=== PATIENT | female | born 1985 | race African-American/Black ===

== ENCOUNTER 2020-02-26 17:51 | Emergency (ER) | payer BC, MEDICAID ==
[~2020-02-26] VITALS: Ht 182.9 cm; Wt 120.0 kg
--- NOTE | 2020-02-26 19:15 | NUR ---
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
[2020-02-26] MEDS ORDERED: MELO7.5T31 PO (19:18)
--- NOTE | 2020-02-26 19:22 | NUR ---
PT REPORTS COMING IN TODAY DUE TO PAIN DOWN LEFT SIDE OF BODY STARTING WITH SHOULDER BLADE AND DOWN TO FEET. NO WEAKNESS NOTED OR DEFICITS ON THAT SIDE. PT STATES THIS HAS BEEN ONGOING FOR THREE DAYS AND THAT HER PRIMARY STATES SHE HAS "ARTERIES THAT ARENT WORKING IN MY LOWER LEGS AND I MAY HAVE A DVT OR JUST VALVE THINGS STAYING OPEN, FEELS LIKE ITS KNOTTED UP." PT GROSS NEURO INTACT. ALSO STATES THAT SHE LOST CONCIOUSNESS X3 TIMES TODAY AND FELL WITH EACH, UNKNOWN IF ANY HEAD TRAUMA, NO DEFORMITIES NOTED. PT CHANGED INTO GOWN AND RESTING ON GURNEY, NAD, VSS, SKIN COLOR WNL WARM AND DRY. PT PLACED ON SPO2/BP/ECG MONITORING. WCTM.
--- NOTE | 2020-02-26 20:01 | NUR ---
PT RESTING IN [facility] AT BS, NO CHANGES IN CONDITION, WCTM. WAITING FOR US RESULTS.
--- NOTE | 2020-02-26 20:42 | NUR ---
PT RESTING IN GURNEY, NAD, NO CHANGE IN CONDITION, REPORTS PAIN IS UNCOMFORTABLE, WCTM. WAITING FOR US RESULTS.
[2020-02-26 21:06] VITALS: BP 114/63
== END 2020-02-26 21:07 | disposition home or self-care (01) ==
LOC: ED 19:24
DX: I80.02 Phlebitis and thrombophlebitis of superficial vessels of left lower extremity (principal); J45.909 Unspecified asthma, uncomplicated; M79.89 Other specified soft tissue disorders; F17.200 Nicotine dependence, unspecified, uncomplicated
CPT/HCPCS: 99284

== ENCOUNTER 2020-03-12 07:35 | Emergency (ER) | payer MEDICAID ==
[~2020-03-12] VITALS: Ht 182.9 cm; Wt 123.4 kg
[~2020-03-12 07:35] MED LIST: MELO7.5T31 PO
[2020-03-12 07:40] VITALS: BP 148/99
--- NOTE | 2020-03-12 08:11 | NUR ---
MD IS AT THE BEDSIDE FOR ASSESSMENT
[2020-03-12 09:11] LABS: ALANINE AMINOTRANSFERASE 33 U/L (12-78); ALBUMIN 3.1 g/dL (3.4-5.0); ANION GAP 5 mmol/L (5-15); C-REACTIVE PROTEIN, QUANT 0.58 mg/dL (0.02-0.49); CALCIUM 8.4 mg/dL (8.5-10.1); CHLORIDE 111 mmol/L (98-107); CREATININE 0.73 mg/dL (0.55-1.02)
[2020-03-12 09:12] LABS: MEAN CORPUSCULAR HEMOGLOBIN 28.3 pg (27.0-34.8); MEAN CORPUSCULAR HGB CONC 31.8 g/dL (32.4-35.8); MEAN CORPUSCULAR VOLUME 88.9 fL (80-100); MEAN PLATELET VOLUME 8.1 fL (7.4-10.4); PLATELET COUNT 356 x10^3/uL (130-400); RED BLOOD COUNT 4.69 x10^6/uL (3.82-5.3); RED CELL DISTRIBUTION WIDTH 14.9 % (9.6-15.2)
[2020-03-12] MEDS ORDERED: IBUPROFEN 800 MG TABLET ONE (09:15)
[2020-03-12 09:16] LABS: ALKALINE PHOSPHATASE 56 U/L (45-117); BILIRUBIN,TOTAL 0.2 mg/dL (0.2-1.0); TOTAL PROTEIN 6.8 g/dL (6.4-8.2)
--- NOTE | 2020-03-12 09:23 | NUR ---
BREAK RN: PHARM REQUEST FOR ALBUTEROL INHALER
[2020-03-12] MEDS ORDERED: ALBUTEROL HFA 90 MCG/SPRAY INH PRN (09:30)
[2020-03-12] MEDS ORDERED: IBUPROFEN 800 MG TABLET PO ONE (09:30)
--- NOTE | 2020-03-12 09:31 | NUR ---
BREAK RN: MEDICATION ADMINISTERED PER ORDER. GARON. PT RESTING ON GURNEY. PT GIVEN BLANKET. PT VERBALIZED UNDERSTANDING REGARDING WAITING ON A MED TO BE SENT FROM PHARMACY. NO OTHER NEEDS REQUESTED AT THIS TIME.
[2020-03-12 09:35] LABS: MD SCAN
[2020-03-12 09:36] LABS: BASOPHILS # (AUTO) 0.06 x10^3/uL (0-0.1); BASOPHILS % (AUTO) 1 % (0-1); EOSINOPHILS # (AUTO) 0.45 x10^3/uL (0-0.4); EOSINOPHILS % (AUTO) 5 % (1-7); LYMPHOCYTES # (AUTO) 1.95 x10^3/uL (1-3.4); LYMPHOCYTES % (AUTO) 20 % (22-44); MONOCYTES # (AUTO) 0.58 x10^3/uL (0.2-0.8); MONOCYTES % (AUTO) 6 % (2-9); NEUTROPHILS # (AUTO) 6.64 x10^3/uL (1.8-6.8); NEUTROPHILS % (AUTO) 69 % (42-75)
== END 2020-03-12 10:15 | disposition home or self-care (01) ==
LOC: ED 08:21
DX: B34.9 Viral infection, unspecified (principal); Z20.828 Contact with and (suspected) exposure to other viral communicable diseases; R94.31 Abnormal electrocardiogram [ECG] [EKG]; F17.200 Nicotine dependence, unspecified, uncomplicated
CPT/HCPCS: 36415; 71045; 80053; 82728; 83615; 84145; 85025; 86140; 87635; 93005; 99285

== ENCOUNTER 2021-03-03 16:42 | Emergency (ER) | payer MEDICAID ==
[~2021-03-03] VITALS: Ht 182.9 cm; Wt 121.0 kg
[2021-03-03 17:57] LABS: MICROSCOPIC AUTO
[2021-03-03 20:33] LABS: BASOPHILS % (AUTO) 1 % (0-1); EOSINOPHILS % (AUTO) 3 % (1-7); LYMPHOCYTES % (AUTO) 26 % (22-44); MEAN CORPUSCULAR HEMOGLOBIN 29.2 pg (27.0-34.8); MEAN CORPUSCULAR HGB CONC 33.7 g/dL (32.4-35.8); MEAN PLATELET VOLUME 8.9 fL (7.4-10.4); MONOCYTES % (AUTO) 8 % (2-9); NEUTROPHILS % (AUTO) 63 % (42-75); PLATELET COUNT 267 x10^3/uL (130-400); RED BLOOD COUNT 5.76 x10^6/uL (3.82-5.3); RED CELL DISTRIBUTION WIDTH 15.7 % (9.6-15.2)
[2021-03-03 20:34] LABS: ALANINE AMINOTRANSFERASE 37 U/L (12-78); ALBUMIN 3.7 g/dL (3.4-5.0); ANION GAP 8 mmol/L (5-15); CALCIUM 9.7 mg/dL (8.5-10.1); CHLORIDE 108 mmol/L (98-107); CREATININE 1.01 mg/dL (0.55-1.02)
[2021-03-03 20:36] LABS: ALKALINE PHOSPHATASE 68 U/L (45-117); BILIRUBIN,TOTAL 0.5 mg/dL (0.2-1.0); TOTAL PROTEIN 7.9 g/dL (6.4-8.2)
[2021-03-03] MEDS ORDERED: ONDANSETRON ODT 4 MG PO ONE (22:30)
[2021-03-03] MEDS ORDERED: HYDROcodone/APAP 5/325 TABLET PO ONE (22:30)
--- NOTE | 2021-03-03 22:39 | NUR ---
INITIAL PT CONTACT. PT PRESENTS TO ED C/O "I'M HAVING LOWER BACK PAIN AND STOMACH PAIN. RIGHT NOW IT FEELS LIKE I'M HAVING CONTRACTIONS. ITS ON BOTH SIDES. I HAVE BEEN DRINKING CRANBERRY JUICE AND WATER. HAS BEEN GOING ON FOR 3 DAYS." PT SITTING UPRIGHT ON DA SCHREIBER, VSS. PT PLACED ON CONTINUOUS MONITORING, CALL LIGHT AND PERSONAL BELONGINGS WITHIN REACH. WILL CONTINUE TO MONITOR. AWAITING ERP
--- NOTE | 2021-03-03 22:54 | NUR ---
CT PENDING HCG RESULT.
[2021-03-03] MEDS ORDERED: ONDANSETRON ODT 4 MG ONE (23:10)
[2021-03-03] MEDS ORDERED: HYDROcodone/APAP 5/325 TABLET ONE (23:11)
--- NOTE | 2021-03-03 23:19 | NUR ---
PT AMBULATORY WITH STEADY GAIT FROM ROOM TO BATHROOM. NO ADDITIONAL NEEDS AT THIS TIME. CALL LIGHT AND BELONGINGS WITHIN REACH.
[2021-03-03] MEDS ORDERED: OMNIPAQUE 350 MG/ML, 100ML BOTTLE ONE (23:51)
[2021-03-04 00:35] VITALS: BP 129/66
--- NOTE | 2021-03-04 00:35 | NUR ---
Patient given discharge instructions and they have confirmed that they understand the instructions. Patient ambulatory with steady gait. NAD, all questions answered appropriately, denies additional needs at this time. No personal belongings left in room after discharge.
== END 2021-03-04 00:37 | disposition home or self-care (01) ==
LOC: ED 17:00
DX: R10.84 Generalized abdominal pain (principal); R19.7 Diarrhea, unspecified; F17.210 Nicotine dependence, cigarettes, uncomplicated
CPT/HCPCS: 36415; 74177; 80053; 81001; 81025; 83690; 85025; 87086; 99285; 99406; Q0162; Q9967